=== PATIENT | female | born 1965 | race Caucasian/White ===

== ENCOUNTER 2022-05-17 09:16 | Day surgery (SDC) | payer OTHER ==
[2022-05-17] MEDS ORDERED: CLINDAMYCIN-D5W 900 MG/50 ML*** 900 MG/50 ML BAG IV STA (09:57)
[2022-05-17 10:08] VITALS: O2SAT 97
[2022-05-17] MEDS ORDERED: Lactated Ringers 1,000 ML IV SCH (10:30)
[2022-05-17 10:59] LABS: Hematocrit 41.5 % (35-47); Hemoglobin 13.2 g/dL (12.0-16.0); Mean Cell Volume 86.1 fL (78-100); Mean Corpuscular Hemoglobin 27.4 pg (26-32); Mean Corpuscular Hgb Concent. 31.8 g/dL (32-36); Mean Platelet Volume 11.4 fL (7.5-11.0); Platelet Count 141 x10^3/uL (150-450); Red Blood Count 4.82 x10^6/uL (4.1-5.4); Red Cell Distribution Width 12.9 % (11.5-14.0); White Blood Count 4.5 x10^3/uL (4.0-10.5)
[2022-05-17 11:16] LABS: ALBUMIN 3.5 g/dL (3.5-5.0); ALKALINE PHOSPHATASE 130 U/L (38-126); ANION GAP 7.7 MEQ/L (5-15); BLOOD UREA NITROGEN 17 mg/dL (7-17); CHLORIDE 108 mmol/L (98-107); Calcium 8.8 mg/dL (8.4-10.2); Carbon Dioxide 30 mmol/L (22-30); Creatinine 1 0.76 mg/dL (0.52-1.04); EST GLOMERULAR FILTRATION RATE > 60.0 ML/MIN; Glucose 94 mg/dL (74-106); Potassium 4.1 mmol/L (3.5-5.1); SGOT/AST 26 U/L (14-36); SGPT/ALT 38 U/L (0-35); SODIUM 141 mmol/L (137-145); Total Protein 6.3 g/dL (6.3-8.2)
[2022-05-17] MEDS ORDERED: Epinephrine Preservative Free 1 MG/ML ONE ×2 (12:38→13:23)
[2022-05-17] MEDS ORDERED: Transderm Scop 1.5MG Patch ONE (13:13)
[2022-05-17] MEDS ORDERED: Xylocaine-Mpf 2% 5 Ml Vial ONE (13:16)
[2022-05-17] MEDS ORDERED: DIPRIVAN 200 MG/20 ML IV ONE (13:16)
[2022-05-17] MEDS ORDERED: SUBLIMAZE 100 MCG/2 ML ONE (13:16)
[2022-05-17] MEDS ORDERED: TORAdol 30 mg Injection ONE (13:16)
[2022-05-17] MEDS ORDERED: Decadron 4 MG INJ ONE ×2 (13:16→13:23)
[2022-05-17] MEDS ORDERED: Zemuron 100 MG/10 ML ONE (13:16)
[2022-05-17] MEDS ORDERED: Zofran 4 MG/2 ML VIAL ONE (13:16)
[2022-05-17] MEDS ORDERED: BRIDION 200MG/2ML IV ONE (13:16)
[2022-05-17] MEDS ORDERED: DEXMEDETOMIDINE 80 MCG/20ML-NS IV ONE (13:23)
[2022-05-17] MEDS ORDERED: Naropin 0.5% 30 ML VIAL ONE (13:23)
[2022-05-17] MEDS ORDERED: Lactated Ringers 1,000 ML IV ONE (13:49)
[2022-05-17] MEDS ORDERED: Ephedrine Sulfate 50 MG/ML ONE (14:36)
[2022-05-17] MEDS ORDERED: Compazine 10 MG/2 ML ONE (15:02)
[2022-05-17 16:10] VITALS: BP 144/85; PULSE 62
--- NOTE | 2022-05-18 08:07 | OP ---
SURGERY DATE/TIME: 05/17/2022 1324 PREOPERATIVE DIAGNOSES: 1) Right ankle pain. 2) Ankle synovitis. 3) Ankle effusion. 4) Difficulty with ambulation. POSTOPERATIVE DIAGNOSES: 1) Right ankle pain. 2) Ankle synovitis. 3) Ankle effusion. 4) Difficulty with ambulation. 5) Osteochondral defect of tibia. PROCEDURE: Ankle arthroscopy with extensive synovectomy and osteochondral defect drilling. SURGEON: Darvin Low DPM. TECHNICAL DATA ANALYST: None. ANESTHESIA: General plus a preoperative abductor canal block. HEMOSTASIS: Pressure dressing. ESTIMATED BLOOD LOSS: Minimal. MATERIALS: 3-0 Nylon. INJECTABLES: See anesthesia report for details. INDICATION FOR SURGERY: Jodie is a very pleasant 57-year-old female who presents today with complaints of chronic pain to the right ankle. The patient has failed all modalities of conservative therapy including but not limited to nonweight bearing, immobilization with CAM walker, injections, anti-inflammatories and physical therapy. At this time the patient's pain has plateaued and is debilitating. An MRI was obtained demonstrating no significant pathology noted within the ankle. Decisions were had with the patient were held with the patient in regards to options for treatment at this time. The patient understands that some aspect of this arthroscopy are diagnostic and with the intention to be therapeutic if anything is found. The patient understands all risks, complications and benefits of surgical intervention including but not limited to infection, hematoma, seroma, possibility of delayed wound healing, nonwound healing, possibility of superficial peroneal nerve irritation and possible failure of surgical intervention. The patient understands all of this and wishes to proceed. Plenty of time was allowed for the patient to ask questions which were answered to the patient's apparent satisfaction. It is with that we proceed. DESCRIPTION OF PROCEDURE AND FINDINGS: The patient is brought into the OR and placed on the OR table in the supine position. At this time, general anesthesia was administered until the patient was sedated. At this time right lower extremity was prepped and draped in the typical sterile fashion past the knee. Attention was directed to the medial and lateral malleolus and the palpable dell at the anterior aspect of the ankle. At this time anteromedial and anterolateral portal sites were established with a marker and insufflation was performed utilizing a 30 cc of lactated Ringer's at the anteromedial portal site. Following this an 11 blade was then utilized to make a skin incision. The skin was then deepened down to the level of the capsule utilizing a mini-curved hemostat until the insufflation fluid rushed out of the site. Following this a blunt trocar with obturator introduced in through anteromedial portal and a 30 mm 4.0 mm camera was introduced inspecting the joints. At this time we inspected the anterior talofibular ligament as well as lateral ankle ligament which demonstrated normal appearances. At this time the joint was inspected and a good amount of synovitis was encountered. A lot of the synovitis that was encountered was free of hemorrhage. However, there were certain areas at the medial side of the capsule that demonstrated hemorrhagic synovitis. At this time extensive synovectomy was performed. Following this the blunt probe was utilized to probe the cartilage and on the tibial side there were no defects noted. However on the tibial side at the lateral aspect of the tibial plafond, there was a small area of concern this was probed and the probe sunk down approximately 3 to 4 mm and this was debrided utilizing the shaver. A 30 degree pick was then utilized to fenestrate the surface of the bone until fat deposits were appreciated. The shaver was then utilized once again to clean up the site until there was healthy bleeding bone seen underneath the surface of the osteochondral defect. Following this the remaining joint was debrided of any loose bodies or free cartilage and scar tissue and the camera and shaver were removed from the site. At this time a 3-0 Nylon was utilized to coapt the skin edges in a horizontal mattress-type fashion in the anteromedial and anterolateral portal sites. A dressing consisting of Hibiclens, Adaptic, 4x4, Kerlix and CARMEN was applied to the patient's right foot and the patient was placed in a CAM walker. The patient was then reversed from anesthesia and returned to the postoperative anesthesia care unit with vital signs stable and vascular status intact. The patient handled the anesthesia as well as the procedure without significant complication. Postoperative orders as indicated in the patient's discharge chart.
== END 2022-05-17 16:22 | disposition home or self-care (01) ==
LOC: SDC 09:16
PROVIDERS: ATTEND Podiatrist Foot & Ankle Surgery
DX: M65.871 Other synovitis and tenosynovitis, right ankle and foot (principal); M25.571 Pain in right ankle and joints of right foot; M25.471 Effusion, right ankle; R26.2 Difficulty in walking, not elsewhere classified
CPT/HCPCS: 36415; 73610; 76000; 80053; 85027; J0171; J1100; J1885; J2405; J2704; J2795; J3010; A9270-GY